=== PATIENT | male | born 1930 | race Caucasian/White ===

== ENCOUNTER 2016-06-01 07:52 | Emergency (ER) | payer OTHER ==
[~2016-06-01] VITALS: Ht 172.7 cm; Wt 75.0 kg
[~2016-06-01 07:52] MED LIST: MOME17I; ZOCO10TA
[2016-06-01 07:54] VITALS: BP 138/90; PULSE 80; RESP 20; TEMP 97.4; O2SAT 94
[2016-06-01] MEDS ORDERED: GABA300C5 PO (09:12)
[2016-06-01] MEDS ORDERED: OXYC1CAP PO (09:16)
[2016-06-01] MEDS ORDERED: inhaler (09:16)
[2016-06-01] MEDS ORDERED: LEVO50TA4 PO (09:16)
[2016-06-01] MEDS ORDERED: SIMV40TA PO (09:16)
[2016-06-01] MEDS ORDERED: NIFE30TA61 PO (09:16)
[2016-06-01] MEDS ORDERED: TERA2CAP3 PO (09:16)
[2016-06-01] MEDS ORDERED: LORA1TAB12 PO (09:16)
[2016-06-01] MEDS ORDERED: PRED20 PO (09:54)
--- NOTE | 2016-06-01 09:57 | PD ---
HPI Chief Complaint: Cold / Flu Symptoms Time Seen by Provider: 09:34 Travel History International Travel<30 days: Yes Contact w/Intl Traveler<30days: [place] Country Traveled to: [place] Traveled to known affect area: No History of Present Illness HPI This patient is visiting from [place]. He's had some runny nose and congestion and cough on and off for 3 weeks. He's been through courses of antibiotics without any change. He denies fever. He is not feeling short of breath. He's had a lot of wheezing. Never been a smoker or have any lung disease. No chest pain. Symptoms severity is mild to moderate PFSH Past Medical History High Cholesterol: Yes Coronary Artery Disease: Yes Patient Takes Glucophage: No Musculoskeletal: Yes (chronic back pain) Thyroid Disease: Yes Influenza Vaccination: Yes Social History Alcohol Use: Yes (OCC) Tobacco Use: No Allergies-Medications (Allergen,Severity, Reaction): Coded Allergies: No Known Allergies (Verified Allergy, Unknown, 05/15/06) Reported Meds & Prescriptions Reported Meds & Active Scripts Active Reported [inhaler] QID Oxycodone (Oxycodone HCl) 5 Mg Cap 2.5 Mg PO Q8H PRN Terazosin (Terazosin HCl) 2 Mg Cap 2 Mg PO HS Levothyroxine (Levothyroxine Sodium) 50 Mcg Tab 50 Mcg PO DAILY Nifedipine ER 24 HR (Nifedipine) 30 Mg Tab 30 Mg PO DAILY Lorazepam 1 Mg Tab 1 Mg PO DAILY PRN Simvastatin 40 Mg Tab 40 Mg PO HS Gabapentin 300 Mg Cap 300 Mg PO DAILY Review of Systems HENT: No: Headaches Cardiovascular: No: Chest Pain or Discomfort Respiratory: Positive: Cough, Wheezing Gastrointestinal: No: Vomiting Physical Exam Narrative RESPIRATORY: Respiratory effort unlabored, no retractions or use of accessory muscles. Breath sounds reveal diffuse expiratory wheezing but no crackles CARDIOVASCULAR: Regular rate and rhythm without murmur. Extremities showed no edema or varicosities. GASTROINTESTINAL: Abdomen soft, non-tender, nondistended. Positive bowel sounds. No hepato-splenomegaly, or palpable masses. No guarding. Throat and TMs normal Data Data Last Documented VS Vital Signs Date Time Temp Pulse Resp B/P Pulse Ox O2 Delivery O2 Flow Rate FiO2 06/01/16 07:54 97.4 80 20 138/90 94 Room Air Orders Albuterol-Ipratropium Neb (Duoneb Neb) (06/01/16 10:00) MDM Medical Decision Making Medical Screen Exam Complete: Yes Emergency Medical Condition: Yes Medical Record Reviewed: Yes Differential Diagnosis Bronchitis, pneumonia, URI Narrative Course Presentation seems most consistent with viral bronchitis I gave him a nebulizer treatment here due to the wheezing He has just been through antibiotics without change These are usually viral illness not responsive to antibiotics I gave him 5 days of prednisone He has an albuterol inhaler at home he should use as needed Diagnosis Primary Impression: Acute viral bronchitis Additional Instructions: The patient was advised to follow up with their physician and return if they worsen. Med/Other Pt SpecificInfo: Prescription(s) given Scripts Prednisone 20 Mg Tab40 Mg PO DIRECTED 5 Days Ref 0 Prov:Cristo Gil MD 06/01/16 Disposition: 01 DISCHARGE HOME Condition: Stable Cristo Gil MD Jun 01, 2016 09:57
[2016-06-01] MEDS ORDERED: RESP: ALBUTEROL 2.5 MG/IPRATROPIUM 0.5 MG NEB (SCH) NEB ONE (10:00)
--- NOTE | 2016-06-01 18:42 | PD ---
Data Data Last Documented VS Vital Signs Date Time Temp Pulse Resp B/P Pulse Ox O2 Delivery O2 Flow Rate FiO2 06/01/16 07:54 97.4 80 20 138/90 94 Room Air Orders Albuterol-Ipratropium Neb (Duoneb Neb) (06/01/16 10:00) MDM Supervised Visit with [facility]: No Narrative Course Pharmacy called for clarification on prednisone script. From Dr. Gil note i believe he intended Prednisone 40mg PO daily for 5 days. This would be reasonable for bronchitis. I have [facility] [phone] and updated this script as above. Diagnosis Primary Impression: Acute viral bronchitis Patient Instructions: General Instructions Departure Forms: Tests/Procedures Additional Instruction: The patient was advised to follow up with their physician and return if they worsen. Scripts Prednisone 20 Mg Tab40 Mg PO DIRECTED 5 Days Ref 0 Prov:Cristo Gil MD 06/01/16 Disposition: 01 DISCHARGE HOME Condition: Stable Gavin Riley MD Jun 01, 2016 18:42
== END 2016-06-01 10:38 | disposition home or self-care (01) ==
LOC: NEPB 07:52
DX: J20.8 Acute bronchitis due to other specified organisms (principal); B97.89 Other viral agents as the cause of diseases classified elsewhere; R09.81 Nasal congestion; R09.89 Other specified symptoms and signs involving the circulatory and respiratory systems; E78.00 Pure hypercholesterolemia, unspecified; I25.10 Atherosclerotic heart disease of native coronary artery without angina pectoris; E07.9 Disorder of thyroid, unspecified; Z87.39 Personal history of other diseases of the musculoskeletal system and connective tissue
CPT/HCPCS: 94664; 99283